=== PATIENT | female | born 1940 | race Caucasian/White ===

== ENCOUNTER → 2018-03-01 | Outpatient (CLI) | payer MEDICARE ==
[~2018-03-01] MED LIST: ASPI-650 PO; IBUP-1221 PO; LISI-167 PO
[2018-03-01 11:00] LABS: MICROSCOPIC NOT IND
[2018-03-01 11:01] LABS: BASOPHILS # (AUTO) 0.02 x10^3/uL (0-0.1); BASOPHILS % (AUTO) 0 % (0-1); EOSINOPHILS # (AUTO) 0.03 x10^3/uL (0-0.4); EOSINOPHILS % (AUTO) 1 % (1-7); LYMPHOCYTES # (AUTO) 1.06 x10^3/uL (1-3.4); LYMPHOCYTES % (AUTO) 23 % (22-44); MD NO; MEAN CORPUSCULAR HEMOGLOBIN 33.6 pg (27.0-34.8); MEAN CORPUSCULAR HGB CONC 34.1 g/dL (32.4-35.8); MEAN CORPUSCULAR VOLUME 98.7 fL (80-100); MEAN PLATELET VOLUME 7.5 fL (7.4-10.4); MONOCYTES # (AUTO) 0.34 x10^3/uL (0.2-0.8); MONOCYTES % (AUTO) 7 % (2-9); NEUTROPHILS # (AUTO) 3.22 x10^3/uL (1.8-6.8); NEUTROPHILS % (AUTO) 69 % (42-75); PLATELET COUNT 223 x10^3/uL (130-400); RED BLOOD COUNT 4.21 x10^6/uL (3.82-5.3); RED CELL DISTRIBUTION WIDTH 13.9 % (9.6-15.2)
[2018-03-01 11:05] LABS: CULTURE INDICATED? NO
[2018-03-01 11:10] LABS: INTERNATIONAL NORMALIZED RATIO 1.01 (0.93-1.1); PROTHROMBIN TIME 10.5 Seconds (9.6-11.5)
[2018-03-01 11:13] LABS: ALANINE AMINOTRANSFERASE 21 U/L (12-78); ALBUMIN 3.9 g/dL (3.4-5.0); ANION GAP 7 mmol/L (5-15); CHLORIDE 108 mmol/L (98-107)
[2018-03-01 11:15] LABS: ALKALINE PHOSPHATASE 134 U/L (45-117); BILIRUBIN,TOTAL 0.7 mg/dL (0.2-1.0); TOTAL PROTEIN 6.9 g/dL (6.4-8.2)
[2018-03-01 12:22] LABS: HEMOGLOBIN A1C 5.1 % (4.2-6.3)
== END | disposition home or self-care (01) ==
LOC: STAR 09:54
PROVIDERS: ATTEND Orthopaedic Surgery
DX: M17.12 Unilateral primary osteoarthritis, left knee (principal); R94.31 Abnormal electrocardiogram [ECG] [EKG]
CPT/HCPCS: 36415; 80053; 81003; 83036; 85025; 85610; 85730; 87081; 87806; 93005; G0475

== ENCOUNTER 2018-03-12 07:30 | Observation (INO) | payer MEDICARE ==
[~2018-03-12] VITALS: Ht 147.3 cm; Wt 56.2 kg
[~2018-03-12 07:30] MED LIST changes: +EPINEPHRINE 1 MG/ML, 1ML ONE; +KETOROLAC 60 MG/2 ML ONE; +ROPIvacaine/PF 0.2%, 20 ML ONE; +TRANEXAMIC ACID 100 MG/ML, 10ML ONE
[2018-03-12] MEDS ORDERED: PROPOFOL 50 ML ONE ×2 (08:36→12:48)
[2018-03-12] MEDS: D5%-0.45NACL+KCL 20MEQ 1,000 ML IV SCH ×2 (09:36→18:16)
[2018-03-12] MEDS ORDERED: LACTATED RINGERS 1,000 ML IV SCH (09:53)
[2018-03-12] MEDS ORDERED: HYDROmorphone 2 MG/ML, 1ML IV PRN (10:00)
[2018-03-12] MEDS ORDERED: ACETAMINOPHEN 650 MG/20.3 ML UDC PO PRN (10:00)
[2018-03-12] MEDS ORDERED: ACETAMINOPHEN 500 MG TABLET PO ONE (10:00)
[2018-03-12] MEDS ORDERED: MAGNESIUM HYDROXIDE 8%, 30ML UDC PO PRN (10:00)
[2018-03-12] MEDS ORDERED: GABAPENTIN 300 MG CAPSULE PO ONE (10:00)
[2018-03-12] MEDS ORDERED: DIPHENHYDRAMINE 25 MG CAPSULE PO PRN (10:00)
[2018-03-12] MEDS ORDERED: ONDANSETRON 2MG/ML, 2ML IV PRN ×2 (10:00→12:30)
[2018-03-12] MEDS ORDERED: ONDANSETRON 4 MG TABLET PO PRN (10:00)
[2018-03-12] MEDS ORDERED: ALUMINUM/MAG/SIMETHICONE 30 ML UDC PO PRN (10:00)
[2018-03-12] MEDS: CEFAZOLIN PMX 1GM/50ML 50 ML IVPB SCH ×2 (10:00→18:16)
[2018-03-12] MEDS ORDERED: PROMETHAZINE 25 MG/ML, 1ML IM PRN (10:00)
[2018-03-12] MEDS ORDERED: SENNA/DOCUSATE TABLET PO PRN (10:00)
[2018-03-12] MEDS ORDERED: FENTANYL PF 100 MCG/2ML ONE (10:46)
[2018-03-12] MEDS ORDERED: MIDAZOLAM 1 MG/ML, 2ML ONE (10:46)
[2018-03-12] MEDS ORDERED: LABETALOL 5MG/ML, 20ML IV PRN (12:30)
[2018-03-12] MEDS ORDERED: ALBUTEROL/IPRATROPIUM 2.5MG/0.5MG, 3 ML NPPB PRN (12:30)
[2018-03-12] MEDS ORDERED: HYDROmorphone 1 MG/ML, 1ML IV PRN (12:30)
[2018-03-12] MEDS ORDERED: EPHEDRINE 50 MG/ML, 1ML IM PRN (12:30)
[2018-03-12] MEDS ORDERED: MEPERIDINE/PF 25MG/0.5ML IVPush PRN (12:30)
[2018-03-12] MEDS ORDERED: FENTANYL PF 100 MCG/2ML IV PRN (12:30)
[2018-03-12] MEDS ORDERED: MIDAZOLAM 1 MG/ML, 2ML IV PRN (12:30)
[2018-03-12] MEDS ORDERED: OXYcodone 5 MG/5 ML ORAL.SOL UDC PO PRN (12:30)
[2018-03-12] MEDS ORDERED: PROMETHAZINE 25 MG/ML, 1ML IV PRN (12:30)
[2018-03-12] MEDS ORDERED: DEXAMETHASONE 4 MG/ML, 1ML ONE ×2 (12:49)
[2018-03-12] MEDS ORDERED: ONDANSETRON 2MG/ML, 2ML ONE ×2 (12:49)
[2018-03-12] MEDS ORDERED: CEFAZOLIN 1,000 MG ONE (12:49)
[2018-03-12] MEDS ORDERED: OXYcodone 5 MG/5 ML ORAL.SOL UDC ONE (13:45)
[2018-03-12] MEDS ORDERED: HYDROmorphone 2 MG/ML, 1ML ONE (13:45)
[2018-03-12] MEDS ORDERED: TRANEXAMIC ACID 1,000 MG in SODIUM CHLORIDE 0.9% 100 ML IVPB ONE (14:00)
[2018-03-12 18:47] VITALS: BP 121/92
[2018-03-12] MEDS: OXYcodone IR 5MG TABLET PO PRN ×2 (20:46→21:51)
[2018-03-12] MEDS: DOCUSATE 100 MG CAPSULE PO SCH (20:46)
[2018-03-13 00:39] VITALS: BP 102/59
[2018-03-13] MEDS: OXYcodone IR 5MG TABLET PO PRN ×3 (04:00→08:54)
[2018-03-13 04:15] VITALS: BP 111/71
[2018-03-13] MEDS: D5%-0.45NACL+KCL 20MEQ 1,000 ML IV SCH (04:54)
[2018-03-13] MEDS ORDERED: DEXAMETHASONE 4 MG/ML, 1ML IVPush SCH (06:00)
[2018-03-13] MEDS ORDERED: ASPIRIN 81 MG TABLET EC PO SCH (06:00)
[2018-03-13 06:47] VITALS: BP 108/70
[2018-03-13] MEDS: DOCUSATE 100 MG CAPSULE PO SCH (08:07)
[2018-03-13] MEDS ORDERED: TAMSULOSIN 0.4 MG CAP.ER.24H PO SCH (09:00)
[2018-03-13] MEDS ORDERED: LISINOPRIL 10 MG TABLET PO SCH (09:00)
[2018-03-13] MEDS ORDERED: ASPI-515 PO (09:27)
[2018-03-13] MEDS ORDERED: DOCU-131 PO (09:28)
[2018-03-13] MEDS ORDERED: ONDA4TAB10 PO (09:29)
[2018-03-13] MEDS ORDERED: CELE200C PO (09:31)
[2018-03-13] MEDS ORDERED: TRAM50TA2 PO (09:32)
[2018-03-13] MEDS ORDERED: OXYC5TAB3 PO (09:34)
[2018-03-13] MEDS ORDERED: KETOROLAC 30 MG/1 ML IV SCH (10:00)
[2018-03-13 10:08] VITALS: BP 109/64
== END 2018-03-13 11:06 | disposition home or self-care (01) ==
LOC: INTOOBSV 09:20 → ORIP 09:20 → 4NOR 14:55 → DCLOUNGE 03-13 10:40
PROVIDERS: ADMIT Orthopaedic Surgery; ATTEND Orthopaedic Surgery
DX: M17.12 Unilateral primary osteoarthritis, left knee (principal)
CPT/HCPCS: 27447; 36415; 73560; 85014; 85018; 96365; 96375; 97116; 97150; 97161; 97165; C1713; C1776; G0378; G8978; G8979; G8980; J0171; J0690; J1100; J1170; J1885; J2250; J2405; J2704; J2795; J3010; J3480; J7120